=== PATIENT | female | born 1970 | race Caucasian/White ===

== ENCOUNTER 2021-08-27 10:45 | Emergency (ER) | payer OTHER ==
[~2021-08-27] VITALS: Ht 175.3 cm; Wt 72.6 kg
[2021-08-27] MEDS ORDERED: MONTELUKAST SOD10 MG (11:31)
[2021-08-27] MEDS ORDERED: VISTARIL50 MG PO (15:57)
== END 2021-08-27 16:16 ==
LOC: ER 10:45
DX: F41.9 Anxiety disorder, unspecified (principal); M54.12 Radiculopathy, cervical region; R51.9 Headache, unspecified

== ENCOUNTER 2021-09-07 19:32 | Emergency (ER) | payer OTHER ==
[~2021-09-07] VITALS: Ht 175.3 cm; Wt 72.6 kg
[~2021-09-07 19:32] MED LIST: MONTELUKAST SOD10 MG; VISTARIL50 MG PO
[2021-09-07] MEDS ORDERED: MINOCYCLINE HCL50 M1 (20:12)
[2021-09-07] MEDS ORDERED: HYDROXYZINE 50 MG (20:14)
[2021-09-07] MEDS ORDERED: MONTELUKAST 10 MG (20:18)
== END 2021-09-07 23:07 | disposition home or self-care (01) ==
LOC: ER 19:32
DX: E86.0 Dehydration (principal); R53.81 Other malaise; F41.9 Anxiety disorder, unspecified; R07.89 Other chest pain

== ENCOUNTER 2022-02-11 09:31 | Outpatient (CLI) | payer OTHER ==
[~2022-02-11 09:31] MED LIST changes: +HYDROXYZINE 50 MG; +MINOCYCLINE HCL50 M1; +MONTELUKAST 10 MG
== END 2022-02-11 09:41 | disposition home or self-care (01) ==
LOC: MAMO-SONO 09:31
PROVIDERS: ATTEND Obstetrics & Gynecology Obstetrics
DX: N64.4 Mastodynia (principal)

== ENCOUNTER 2022-02-14 15:09 | Outpatient (CLI) | payer OTHER | END 2022-02-14 15:19 | disposition home or self-care (01) | LOC: MRI 15:09 | PROVIDERS: ATTEND General Practice | DX: R51.9 Headache, unspecified (principal) | CPT/HCPCS: 70551 ==

== ENCOUNTER → 2022-05-20 | Outpatient (CLI) | payer OTHER | END | disposition home or self-care (01) | LOC: RAD 13:47 | DX: M54.2 Cervicalgia (principal) ==

== ENCOUNTER → 2023-02-23 | Outpatient (CLI) | payer OTHER | END | disposition home or self-care (01) | LOC: RAD 14:04 | DX: R07.1 Chest pain on breathing (principal) ==